=== PATIENT | male | born 1985 | race Caucasian/White ===

== ENCOUNTER 2017-01-14 21:52 | Emergency (ER) | payer SELFPAY ==
[2017-01-14 23:38] VITALS: BP 130/88
== END 2017-01-14 23:38 | disposition home or self-care (01) ==
LOC: ED 21:52
DX: S13.4XXA Sprain of ligaments of cervical spine, initial encounter (principal); V43.62XA Car passenger injured in collision with other type car in traffic accident, initial encounter; Y93.19 Activity, other involving water and watercraft; Y92.488 Other paved roadways as the place of occurrence of the external cause; Y99.8 Other external cause status